=== PATIENT | male | born 1965 | race African-American/Black ===

== ENCOUNTER 2019-07-14 14:30 | Emergency (ER) | payer SELFPAY ==
[~2019-07-14] VITALS: Ht 188 cm; Wt 109.0 kg
[2019-07-14 14:34] VITALS: BP 225/134
== END 2019-07-14 17:52 | disposition left against medical advice (07) ==
LOC: ER 14:30
DX: R26.9 Unspecified abnormalities of gait and mobility (principal); Z53.21 Procedure and treatment not carried out due to patient leaving prior to being seen by health care provider

== ENCOUNTER 2019-07-15 10:11 | Inpatient (IN) | payer SELFPAY ==
[~2019-07-15] VITALS: Ht 196.8 cm; Wt 107.5 kg
[2019-07-15] MEDS ORDERED: SODIUM CHLORIDE 0.9% 1,000 ML IV ONE (10:47)
[2019-07-15] MEDS ORDERED: HYDRALAZINE 20MG/ML VIAL IV ONE (11:00)
[2019-07-15] MEDS ORDERED: CEFTRIAXONE 1 G PREMIX 50 ML IV ONE (11:00)
[2019-07-15 11:18] LABS: BASOPHILS % 0.4 % (0.0-2.0); EOSINOPHILS % 2.2 % (0.0-5.0); HEMATOCRIT. 44.2 % (42.0-52.0); HEMOGLOBIN. 14.4 g/dL (14.0-18.0); LYMPHOCYTES % 13.9 % (20.0-50.0); MEAN CORPUSCULAR HEMOGLOBIN 28.1 pg (28.0-32.0); MEAN CORPUSCULAR VOLUME 86.3 fL (80.0-94.0); MEAN PLATELET VOLUME 7.7 fl (7.4-10.4); NEUTROPHILS % 76.5 % (40.0-76.0); PLATELET 207 x1000/uL (130-400); RED BLOOD CELL COUNT 5.12 mill/uL (4.7-6.1); RED CELL DISTRIBUTION WIDTH 13.9 % (11.6-14.6)
[2019-07-15 11:31] LABS: CHLORIDE 108 mEq/L (98-107)
[2019-07-15 11:36] LABS: PARTIAL THROMBOPLASTIN TIME 25.2 sec (23.4-31.0); PROTHROMBIN TIME 10.5 sec (9.6-11.0)
[2019-07-15] MEDS ORDERED: ASPIRIN 325MG EC TABLET PO ONE (13:00)
[2019-07-15] MEDS ORDERED: IPRATROPIUM/ALBUTEROL 0.5-3(2.5)MG/3ML NEB HHN PRN (15:15)
[2019-07-15] MEDS ORDERED: GUAIFENESIN 200MG/10ML SUGAR FREE UDC PO PRN (15:15)
[2019-07-15] MEDS ORDERED: ONDANSETRON HCL 4MG/2ML INJ IV PRN (15:15)
[2019-07-15 15:59] LABS: PHOSPHORUS 3.3 mg/dL (2.5-4.9)
[2019-07-15 16:21] LABS: FOLIC ACID (FOLATE) SERUM >20 ng/mL ng/mL (>5.38)
[2019-07-15 16:33] LABS: VITAMIN B12 SERUM 490 pg/mL (211-911)
[2019-07-15] MEDS ORDERED: CLOPIDOGREL 75MG TABLET PO NR (18:15)
[2019-07-15] MEDS: CLONIDINE 0.1MG TABLET PO PRN ×2 (18:51→22:06)
[2019-07-15 23:00] VITALS: BP_SYST 116; BP_SYST 166; BP_DIAS 110
[2019-07-16 00:17] LABS: CREATINE KINASE MB FRACTION 36.6 ng/mL (0.5-3.6)
[2019-07-16] MEDS ORDERED: LISI40TA4 PO (00:46)
[2019-07-16] MEDS ORDERED: ASPI-986 PO (00:46)
[2019-07-16 04:00] VITALS: BP 160/108
[2019-07-16] MEDS: CLONIDINE 0.1MG TABLET PO PRN ×2 (04:43→21:41)
[2019-07-16 06:39] LABS: BASOPHILS % 0.5 % (0.0-2.0); EOSINOPHILS % 2.8 % (0.0-5.0); HEMATOCRIT. 43.8 % (42.0-52.0); HEMOGLOBIN. 14.2 g/dL (14.0-18.0); LYMPHOCYTES % 16.9 % (20.0-50.0); MEAN CORPUSCULAR HEMOGLOBIN 28.1 pg (28.0-32.0); MEAN CORPUSCULAR VOLUME 86.8 fL (80.0-94.0); MEAN PLATELET VOLUME 7.8 fl (7.4-10.4); MONOCYTES % 7.5 % (2.0-8.0); NEUTROPHILS % 72.3 % (40.0-76.0); PLATELET 202 x1000/uL (130-400); RED BLOOD CELL COUNT 5.05 mill/uL (4.7-6.1)
[2019-07-16 08:00] VITALS: BP 138/102
[2019-07-16 08:05] LABS: LDL CHOLESTEROL 92 mg/dL (5-100)
[2019-07-16 08:07] LABS: CREATINE KINASE 724 IU/L (39-308); HDL CHOLESTEROL 50 mg/dL (40-59)
[2019-07-16 08:09] LABS: CREATINE KINASE MB FRACTION 25.9 ng/mL (0.5-3.6)
[2019-07-16 08:12] LABS: CHLORIDE 110 mEq/L (98-107)
[2019-07-16] MEDS ORDERED: ASPIRIN 81MG EC TABLET PO SCH (09:00)
[2019-07-16] MEDS: CLOPIDOGREL 75MG TABLET PO SCH (09:30)
[2019-07-16] MEDS: ENOXAPARIN 30MG/0.3ML SYR SUBCUT SCH ×2 (09:32→21:42)
[2019-07-16 10:43] LABS: ETHANOL BLOOD < 10 mg/dL
[2019-07-16 10:45] LABS: LDL CHOLESTEROL 100 mg/dL (5-100)
[2019-07-16 10:47] LABS: HDL CHOLESTEROL 55 mg/dL (40-59)
[2019-07-16 12:00] VITALS: BP 165/103
[2019-07-16 13:39] LABS: *AMPHETAMINES SCREEN URINE NEGATIVE (NEGATIVE); *BARBITURATES SCREEN URINE NEGATIVE (NEGATIVE); *BENZODIAZEPINES SCREEN URINE NEGATIVE (NEGATIVE); *COCAINE SCREEN URINE NEGATIVE (NEGATIVE)
[2019-07-16 13:40] LABS: CANNABINOID URINE SCREEN NEGATIVE (NEGATIVE); METHADONE URINE SCREEN NEGATIVE (NEGATIVE); OPIATES URINE SCREEN NEGATIVE (NEGATIVE); PHENCYCLIDINE URINE SCREEN NEGATIVE (NEGATIVE)
[2019-07-16 16:00] VITALS: BP 176/95
[2019-07-16] MEDS: LISINOPRIL 40MG TABLET PO SCH (18:17)
[2019-07-16 20:00] VITALS: BP 172/112
[2019-07-16] MEDS: ATORVASTATIN CALCIUM 20MG TABLET PO SCH (21:41)
[2019-07-16] MEDS: ACETAMINOPHEN 325MG TABLET PO PRN (21:42)
[2019-07-17] VITALS: BP 134/87
[2019-07-17 04:00] VITALS: BP 142/92
[2019-07-17 06:39] LABS: BASOPHILS % 0.5 % (0.0-2.0); EOSINOPHILS % 3.2 % (0.0-5.0); HEMOGLOBIN. 14.3 g/dL (14.0-18.0); LYMPHOCYTES % 22.9 % (20.0-50.0); MEAN CORPUSCULAR HEMOGLOBIN 28.6 pg (28.0-32.0); MEAN PLATELET VOLUME 7.9 fl (7.4-10.4); MONOCYTES % 8.5 % (2.0-8.0); NEUTROPHILS % 64.9 % (40.0-76.0); PLATELET 202 x1000/uL (130-400); RED CELL DISTRIBUTION WIDTH 14.1 % (11.6-14.6)
[2019-07-17 06:53] LABS: PHOSPHORUS 4.3 mg/dL (2.5-4.9)
[2019-07-17 08:00] VITALS: BP 187/106
[2019-07-17] MEDS ORDERED: AMLODIPINE 5MG TABLET PO SCH (09:30)
[2019-07-17] MEDS: ENOXAPARIN 30MG/0.3ML SYR SUBCUT SCH ×2 (09:32→20:03)
[2019-07-17] MEDS: CLOPIDOGREL 75MG TABLET PO SCH (09:32)
[2019-07-17] MEDS: LISINOPRIL 40MG TABLET PO SCH (09:33)
[2019-07-17 12:00] VITALS: BP 196/141
[2019-07-17] MEDS: CLONIDINE 0.1MG TABLET PO PRN ×2 (12:36→20:03)
[2019-07-17 16:00] VITALS: BP 159/101
[2019-07-17 17:07] LABS: CLARITY URINE CLOUDY (CLEAR); COLOR URINE YELLOW (YELLOW); KETONES URINE NEGATIVE (NEGATIVE); LEUKOCYTE ESTERASE URINE 1+ (NEGATIVE); NITRITE URINE NEGATIVE (NEGATIVE); OCCULT BLOOD URINE 3+ (NEGATIVE); PH URINE 5.5 (4.5-8.0); PROTEIN URINE 1+ (NEGATIVE); SPECIFIC GRAVITY URINE 1.015 (1.005-1.030); UROBILINOGEN URINE 0.2 E.U./dL (0.2-1.0)
[2019-07-17 19:55] VITALS: BP 189/119
[2019-07-17] MEDS: ACETAMINOPHEN 325MG TABLET PO PRN (20:03)
[2019-07-17] MEDS: ATORVASTATIN CALCIUM 20MG TABLET PO SCH (20:03)
[2019-07-18] VITALS: BP 151/88
[2019-07-18 04:00] VITALS: BP 177/106
[2019-07-18 05:47] LABS: BASOPHILS % 0.6 % (0.0-2.0); EOSINOPHILS % 2.9 % (0.0-5.0); MEAN CORPUSCULAR HEMOGLOBIN 28.6 pg (28.0-32.0); MEAN CORPUSCULAR VOLUME 85.8 fL (80.0-94.0); MONOCYTES % 8.6 % (2.0-8.0); NEUTROPHILS % 63.9 % (40.0-76.0); PLATELET 206 x1000/uL (130-400); RED BLOOD CELL COUNT 4.89 mill/uL (4.7-6.1); RED CELL DISTRIBUTION WIDTH 13.8 % (11.6-14.6)
[2019-07-18] MEDS: CLONIDINE 0.1MG TABLET PO PRN ×2 (05:54→12:24)
[2019-07-18 06:42] LABS: PHOSPHORUS 4.7 mg/dL (2.5-4.9)
[2019-07-18 08:00] VITALS: BP 138/102
[2019-07-18] MEDS: ENOXAPARIN 30MG/0.3ML SYR SUBCUT SCH ×2 (08:40→21:00)
[2019-07-18] MEDS: CLOPIDOGREL 75MG TABLET PO SCH (08:40)
[2019-07-18] MEDS: LISINOPRIL 40MG TABLET PO SCH (08:41)
[2019-07-18] MEDS: AMLODIPINE 10MG TABLET PO SCH (08:41)
[2019-07-18] MEDS: METOPROLOL TARTRATE 50MG TABLET PO SCH ×2 (08:41→22:44)
[2019-07-18 12:00] VITALS: BP 163/103
[2019-07-18 13:20] VITALS: BP 155/98
[2019-07-18 16:01] VITALS: BP 130/83
[2019-07-18] MEDS: ATORVASTATIN CALCIUM 20MG TABLET PO SCH (22:44)
[2019-07-19] VITALS (7 sets, daily range): BP systolic 117–162; BP diastolic 74–112
[2019-07-19] MEDS: CLONIDINE 0.1MG TABLET PO PRN ×3 (05:36→12:04)
[2019-07-19 06:13] LABS: BASOPHILS % 0.4 % (0.0-2.0); HEMATOCRIT. 43.7 % (42.0-52.0); HEMOGLOBIN. 14.4 g/dL (14.0-18.0); LYMPHOCYTES % 21.5 % (20.0-50.0); MEAN CORPUSCULAR HEMOGLOBIN 28.3 pg (28.0-32.0); MEAN CORPUSCULAR VOLUME 86.2 fL (80.0-94.0); MEAN PLATELET VOLUME 8.1 fl (7.4-10.4); MONOCYTES % 8.8 % (2.0-8.0); NEUTROPHILS % 66.3 % (40.0-76.0); PLATELET 204 x1000/uL (130-400); RED BLOOD CELL COUNT 5.07 mill/uL (4.7-6.1)
[2019-07-19 06:59] LABS: PHOSPHORUS 3.8 mg/dL (2.5-4.9)
[2019-07-19] MEDS: CLOPIDOGREL 75MG TABLET PO SCH (08:24)
[2019-07-19] MEDS: AMLODIPINE 10MG TABLET PO SCH (08:24)
[2019-07-19] MEDS: METOPROLOL TARTRATE 50MG TABLET PO SCH (08:24)
[2019-07-19] MEDS: ENOXAPARIN 30MG/0.3ML SYR SUBCUT SCH (08:24)
[2019-07-19] MEDS: LISINOPRIL 40MG TABLET PO SCH (08:24)
[2019-07-19] MEDS ORDERED: METO-539 PO (12:48)
[2019-07-19] MEDS ORDERED: METF-414 MT (12:48)
[2019-07-19] MEDS ORDERED: ASPI-1158 MT (12:48)
[2019-07-19] MEDS ORDERED: AMLO10TA80 PO (12:48)
[2019-07-19] MEDS ORDERED: ATOR20TA PO (12:48)
[2019-07-19] MEDS ORDERED: CLOP75TA15 PO (12:48)
[2019-07-19] MEDS ORDERED: LISI40TA4 PO (12:48)
[2019-07-20] MEDS ORDERED: ENOXAPARIN 40MG/0.4ML SYR SUBCUT SCH (09:00)
== END 2019-07-19 16:49 | disposition home or self-care (01) | DRG 45 ==
LOC: ER 10:11 → 7WST 13:48 → ENRESERV 20:55
PROVIDERS: ADMIT Internal Medicine; ATTEND Internal Medicine
DX: I63.81 Other cerebral infarction due to occlusion or stenosis of small artery (principal); N17.9 Acute kidney failure, unspecified; E11.22 Type 2 diabetes mellitus with diabetic chronic kidney disease; E44.0 Moderate protein-calorie malnutrition; M62.82 Rhabdomyolysis; G81.94 Hemiplegia, unspecified affecting left nondominant side; N28.1 Cyst of kidney, acquired; N18.9 Chronic kidney disease, unspecified; I12.9 Hypertensive chronic kidney disease with stage 1 through stage 4 chronic kidney disease, or unspecified chronic kidney disease; K02.9 Dental caries, unspecified; R47.1 Dysarthria and anarthria; R47.81 Slurred speech; N13.2 Hydronephrosis with renal and ureteral calculous obstruction; R29.810 Facial weakness; Z79.84 Long term (current) use of oral hypoglycemic drugs; Z82.49 Family history of ischemic heart disease and other diseases of the circulatory system; Z79.899 Other long term (current) drug therapy; Z68.27 Body mass index [BMI] 27.0-27.9, adult
CPT/HCPCS: 36415; 70544; 70551; 71045; 74176; 76770; 80048; 80053; 80061; 80305; 80320; 81003; 82550; 82553; 82607; 82746; 82962; 83036; 83735; 83880; 84100; 84439; 84443; 84481; 84484; 85025; 86850; 86900; 93005; 93306; 93880; 93970; 97110; 97116; 97162; 97166; 97535; 99285; J0360; J0696; J1650; J7030; G0480